=== PATIENT | female | born 1975 | race African-American/Black ===

== ENCOUNTER 2017-06-26 15:13 | Emergency (ER) | payer OTHER ==
[2017-06-26 15:26] VITALS: TEMP 98.2; BMI 39.0
--- NOTE | 2017-06-26 18:06 | PDOC ---
History of Present Illness - General Chief Complaint: Chest Pain Stated Complaint: CHEST PAIN Time Seen by Provider: 06/26/17 18:06 - History of Present Illness Initial Comments: 06/26/17 18:24 Ms. Gaming is a 41 yo female w/ pmh of HIV (last CD4 reported over 1k and viral load undetectable approximately 2 months ago) and anemia who presents for evaluation of 1 week of midline chest pain. She reports the pain as 5/10 and says that it gets intermittently better or worse although she cannot relate it to anything. She further reports a sensation of food sticking in her chest although she reports that this pain is different. The patient denies shortness of breath, headache and dizziness. Denies fever, chills, nausea, vomit, diarrhea and constipation. Denies dysuria, frequency, urgency and hematuria. Allergies: Zidovudine Past History - Past Medical History Allergies/Adverse Reactions: Allergies Allergy/AdvReac Type Severity Reaction Status Date / Time zidovudine AdvReac Severe anemia Verified 06/26/17 15:21 Home Medications: Ambulatory Orders Valacyclovir HCl [Valtrex -] 500 mg PO BID #10 tablet 01/06/16 Clotrimazole [Clotrimazole AF] 1 applic TP BID #15 cream..g. 08/24/16 [place]-3 Fatty Acids [[place]-3] 1,000 mg PO BID #60 capsule 09/13/16 Terbinafine HCl [Lamisil At] 1 applic TP BID #30 cream..g. 11/14/16 Cetirizine HCl [Zyrtec -] 10 mg PO DAILY PRN #30 tablet 04/10/17 Carboxymethylcellulose Sodium [Thera Tears] 1 - 2 drop OU PRN #15 ml 04/18/17 Atorvastatin Calcium [Lipitor] 10 mg PO HS #30 tablet 05/31/17 Sertraline HCl [Zoloft -] 100 mg PO DAILY 30 Days #30 tablet 06/05/17 Zolpidem Tartrate [Ambien] 5 mg PO HS #30 tablet MDD 1 06/05/17 Cholecalciferol (Vitamin D3) [Vitamin D3 -] 1,000 unit PO DAILY #30 tab Darunavir/Cobicistat [Prezcobix 800 mg-150 mg Tablet] 1 each PO DAILY #30 tablet 06/13/17 Dolutegravir Sodium [Tivicay] 50 mg PO DAILY #30 tablet 06/13/17 Emtricitabine/Tenofov Alafenam [Descovy 200-25 mg Tablet] 1 each PO DAILY #30 tablet 06/13/17 Multivitamin,Ther and Minerals [Vitamin and Minerals] 1 each PO DAILY #30 tablet 06/13/17 Triamcinolone 0.1% Cream [Aristocort 0.1% Cream -] 1 applic TP BID #15 g Docusate Sodium [Colace -] 100 mg PO TID PRN #90 capsule 06/26/17 Omeprazole 20 mg PO DAILY #14 tablet. 06/26/17 Anemia: No Asthma: No Cancer: No Cardiac Disorders: No CVA: No COPD: No CHF: No Dementia: No Diabetes: No GI Disorders: No Disorders: No HTN: No Hypercholesterolemia: Yes Liver Disease: No Seizures: No Thyroid Disease: No - Suicide/Smoking/Psychosocial Hx Smoking History: Never smoked Have you smoked in the past 12 months: No Cigars Per Day: 0 Hx Alcohol Use: Yes (occasional 1 drink) Drug/Substance Use Hx: No Substance Use Type: None Hx Substance Use Treatment: No Review of Systems - Review of Systems Comments:: 06/26/17 18:29 GENERAL/CONSTITUTIONAL: No fever or chills. No weakness. HEAD, EYES, EARS, NOSE AND THROAT: No change in vision. No ear pain or discharge. No sore throat. CARDIOVASCULAR: +Chest pain as described. No shortness of breath RESPIRATORY: No cough, wheezing, or hemoptysis. GASTROINTESTINAL: No nausea, vomiting, diarrhea or constipation. GENITOURINARY: No dysuria, frequency, or change in urination. MUSCULOSKELETAL: No joint or muscle swelling or pain. No neck or back pain. SKIN: No rash NEUROLOGIC: No headache, vertigo, loss of consciousness, or change in strength/ sensation. ENDOCRINE: No increased thirst. No abnormal weight change HEMATOLOGIC/LYMPHATIC: No anemia, easy bleeding, or history of blood clots. ALLERGIC/IMMUNOLOGIC: No hives or skin allergy. *Physical Exam - Vital Signs Last Vital Signs Temp Pulse Resp BP Pulse Ox 98.2 F 73 78 H 141/81 100 06/26/17 15:22 06/26/17 15:22 06/26/17 15:22 06/26/17 15:22 06/26/17 15:22 - Physical Exam Comments: 06/26/17 18:29 GENERAL: Awake, alert, and fully oriented, in no acute distress HEAD: No signs of trauma, normocephalic, atraumatic EYES: PERRLA, EOMI, sclera anicteric, conjunctiva clear ENT: Auricles normal inspection, hearing grossly normal, nares patent, oropharynx clear without exudates. Moist mucosa NECK: Normal ROM, supple, no lymphadenopathy, JVD, or masses LUNGS: +Reproducible chest pain with sternal palpation. No distress, speaks full sentences, clear to auscultation bilaterally HEART: Regular rate and rhythm, normal S1 and S2, no murmurs, rubs or gallops, peripheral pulses normal and equal bilaterally. ABDOMEN: Soft, nontender, normoactive bowel sounds. No guarding, no rebound. No masses EXTREMITIES: Normal inspection, Normal range of motion, no edema. No clubbing or cyanosis. NEUROLOGICAL: Cranial nerves II through XII grossly intact. Normal speech, normal gait, no focal sensorimotor deficits SKIN: Warm, Dry, normal turgor, no rashes or lesions noted. ED Treatment Course - LABORATORY CBC & Chemistry Diagram: 06/26/17 18:33 06/26/17 18:33 Medical Decision Making - Medical Decision Making 06/26/17 18:41 Ms. Gaming is a 41 yo female w/ pmh as described who presents for evaluation of midline chest pain as described. Chest pain workup started with evaluation for cardiac labs, EKG, CXR, and GERD treatment. 06/26/17 18:51 Patient signed out to Dr. Tamayo for further evaluation. *DC/Admit/Observation/Transfer Diagnosis at time of Disposition: Atypical chest pain - Discharge Dispostion Disposition: HOME Condition at time of disposition: Good - Prescriptions Prescriptions: Omeprazole 20 mg PO DAILY #14 tablet. - Referrals Referrals: [facility] [place] [facility] at [place] [Provider Group] - Patient Instructions Printed Discharge Instructions: DI for Atypical Chest Pain Additional Instructions: Please return if you have any new, worsening or concerning symptoms. Please follow up with your primary care physician this week. If you do not have one, a number for one has been provided for you. - Post Discharge Activity
[2017-06-26] MEDS ORDERED: FAMOTIDINE IV 20 MG/12 ML VIAL IVPB ONE (18:40)
[2017-06-26] MEDS ORDERED: SODIUM CHLORIDE 1,000 ML IV STA (18:40)
[2017-06-26] MEDS ORDERED: FAMOTIDINE 20 MG/50 ML IVPB 20 MG/50 ML MG IVPB ONE (18:59)
--- NOTE | 2017-06-26 19:41 | PDOC ---
Attending Attestation - Resident Resident Name: Justin Decker - ED Attending Attestation I have performed the following: I have examined & evaluated the patient, The case was reviewed & discussed with the resident, I agree w/resident's findings & plan, Exceptions are as noted - HPI HPI: 06/26/17 21:33 CP described as burning. - Physicial Exam PE: 06/26/17 21:32 *Physical Exam General Appearance: Yes: Appropriately Dressed. No: Apparent Distress, Intoxicated HEENT: positive: EOMI, AILYN, Normal ENT Inspection, Normal Voice, TMs Normal, Pharynx Normal. negative: Pale Conjunctivae, Photophobia, Scleral Icterus (R), Scleral Icterus (L) Neck: positive: Trachea midline, Normal Thyroid, Supple. negative: Tender, Rigid, Carotid bruit, Stridor, Lymphadenopathy (R), Lymphadenopathy (L), Thyromegaly Respiratory/Chest: positive: Lungs Clear, Normal Breath Sounds. negative: Chest Tender, Respiratory Distress, Accessory Muscle Use, Labored Respiration, RES, Crackles, Rales, Rhonchi, Stridor, Wheezing, Dullness Cardiovascular: positive: Regular Rhythm, Regular Rate, S1, S2. negative: Edema , JVD, Murmur, Bradycardia, Tachycardia Vascular Pulses: Dorsalis-Pedis (R): 2+, Doralis-Pedis (L): 2+ Gastrointestinal/Abdominal: positive: Normal Bowel Sounds, Flat, Soft. negative : Tender, Organomegaly, Pulsatile Mass, Increased Bowel Sounds, Decreased BS, Distended, Guarding, Rebound, Hernia, Hepatomegaly, Spleenomegaly Lymphatic: negative: Adenopathy, Tenderness Musculoskeletal: positive: Normal Inspection. negative: CVA Tenderness, Decreased Range of Motion Extremity: positive: Normal Capillary Refill, Normal Inspection, Normal Range of Motion, Pelvis Stable. negative: Tender, Pedal Edema, Swelling, Erythema Integumentary: positive: Normal Color, Dry, Warm. negative: Cyanotic, Erythema , Jaundice, Rash Neurologic: positive: fundraising sale representative II-XII NML intact, Fully Oriented, Alert, Normal Mood/ Affect, Motor Strength 5/5. negative: EOM Palsy, Facial Droop, Sensory Deficit - Medical Decision Making 06/26/17 21:33 Pt treated and released
--- NOTE | 2017-06-26 19:45 | PDOC ---
*Physical Exam - Vital Signs Last Vital Signs Temp Pulse Resp BP Pulse Ox 98.2 F 73 78 H 141/81 100 06/26/17 15:22 06/26/17 15:22 06/26/17 15:22 06/26/17 15:22 06/26/17 15:22 - Physical Exam Comments: 06/26/17 20:58 GENERAL: Awake, alert, and fully oriented, in no acute distress, standing up HEAD: No signs of trauma, normocephalic, atraumatic EYES: PERRLA, EOMI, sclera anicteric, conjunctiva clear ENT: Auricles normal inspection, hearing grossly normal, nares patent, oropharynx clear without exudates. Moist mucosa LUNGS: No distress, speaks full sentences, clear to auscultation bilaterally HEART: Regular rate and rhythm, normal S1 and S2, no murmurs, rubs or gallops, peripheral pulses normal and equal bilaterally. EXTREMITIES: Normal inspection, Normal range of motion, no edema. No clubbing or cyanosis. NEUROLOGICAL: Cranial nerves II through XII grossly intact. Normal speech, normal gait, no focal sensorimotor deficits SKIN: Warm, Dry, normal turgor, no rashes or lesions noted. Heart Score/ECG Review - History History: Slightly suspicious - Electrocardiogram EKG: Normal - Age Age: </= 45 - Risk Factors Based on the list above the patient has:: No risk factors known - Troponin Troponin: </= normal limit - Score Heart Score - Total: 0 ED Treatment Course - LABORATORY CBC & Chemistry Diagram: 06/26/17 18:33 06/26/17 18:33 - Medications Given in the ED: ED Medications Discontinued Medications Generic Name Dose Route Start Last Admin Trade Name Freq PRN Reason Stop Dose Admin Famotidine 20 mg in 12 mls @ 144 mls/hr 06/26/17 18:40 06/26/17 19:31 Pepcid 20 Mg/12 Ml Push IVPB 06/26/17 18:44 144 mls/hr ONCE ONE Administration Sodium Chloride 1,000 mls @ 1,000 mls/hr 06/26/17 18:40 06/26/17 19:30 Normal Saline - IV 06/26/17 19:39 1,000 mls/hr ASDIR STA Administration Medical Decision Making - Medical Decision Making 06/26/17 21:[address] Decker. Patient is 41F with history of HIV (last CD4 reported over 1k and viral load undetectable approximately 2 months ago) and anemia here today complaining of chest pain. Story atypical, likely GERD. Patient reports that pain has improved with pepcid. Labs reviewed, trop undetectable, otherwise unremarkable. EKG shows normal sinus rhythm with normal rate of [address] elevations/ depressions. Normal QRS/KS/QTc intervals. No significant t wave abnormalities. CXR pending. 06/26/17 21:28 CXR shows no acute cardiopulmonary process. Will discharge with return precautions and primary care follow up. *DC/Admit/Observation/Transfer Diagnosis at time of Disposition: Atypical chest pain - Discharge Dispostion Disposition: HOME Condition at time of disposition: Good - Referrals Referrals: [facility] [place] [facility] at [place] [Provider Group] - Patient Instructions Printed Discharge Instructions: DI for Atypical Chest Pain Additional Instructions: Please return if you have any new, worsening or concerning symptoms. Please follow up with your primary care physician this week. If you do not have one, a number for one has been provided for you. - Post Discharge Activity
[2017-06-26 19:47] LABS: BASO % 0.6 % (0-2.0); EOS % 0.5 % (0-4.5); HEMATOCRIT 40.8 % (32.4-45.2); LYMPH % 25.8 % (8-40); MCH 32.8 pg (25.7-33.7); MCHC 34.2 g/dl (32.0-36.0); MEAN CELL VOLUME 95.9 fl (80-96); MEAN PLT VOLUME 8.5 fl (7.5-11.1); NEUT % 64.1 % (42.8-82.8); PLATELET COUNT 220 K/MM3 (134-434); RBC 4.25 M/mm3 (3.60-5.2); RDW 15.5 % (11.6-15.6); WHITE BLOOD COUNT 8.2 K/mm3 (4.0-10.0)
[2017-06-26 20:02] LABS: ALBUMIN 3.2 g/dl (3.4-5.0); ANION GAP 5 (8-16); BLOOD UREA NITROGEN 11 mg/dL (7-18); CALCIUM 8.6 mg/dL (8.5-10.1); CHLORIDE 103 mmol/L (98-107); CO2 31 mmol/L (21-32); GLUCOSE,RANDOM 82 mg/dL (74-106); POTASSIUM 3.8 mmol/L (3.5-5.1); SODIUM 139 mmol/L (136-145)
[2017-06-26 20:08] LABS: ALK PHOS 60 U/L (45-117); BILIRUBIN,TOTAL 0.5 mg/dL (0.2-1.0); CREATININE 1.1 mg/dL (0.55-1.02); SGOT/AST 21 U/L (15-37); SGPT/ALT 24 U/L (12-78); TOT PROT 7.6 g/dl (6.4-8.2)
[2017-06-26 21:18] VITALS: BP 138/78; PULSE 78
== END 2017-06-26 21:59 | disposition home or self-care (01) ==
LOC: JER 15:13
PROC: 3E033GC Introduction of Other Therapeutic Substance into Peripheral Vein, Percutaneous Approach (ICD-10-PCS; principal; 2017-06-26)
DX: K21.9 Gastro-esophageal reflux disease without esophagitis (principal); R07.89 Other chest pain; D64.9 Anemia, unspecified; E78.00 Pure hypercholesterolemia, unspecified; Z21 Asymptomatic human immunodeficiency virus [HIV] infection status
CPT/HCPCS: 36415; 71046-TC-FY; 80053; 82550; 84484; 85025; 87086; 99282-25; J7030

== ENCOUNTER → 2023-01-16 | Day surgery (SDC) | payer OTHER | END | disposition home or self-care (01) | LOC: FMAMMOTONE 09:35 | PROVIDERS: ATTEND Surgery | PROC: 0HBT3ZX Excision of Right Breast, Percutaneous Approach, Diagnostic (ICD-10-PCS; principal; 2023-01-16) | DX: R92.8 Other abnormal and inconclusive findings on diagnostic imaging of breast (principal) | CPT/HCPCS: 19081; 76098-TC-FY; 88305-TC ==

== ENCOUNTER 2023-03-05 04:31 | Day surgery (SDC) | payer OTHER ==
[2023-02-14 15:19] VITALS: BMI 40.3
[2023-03-05 11:17] VITALS: RESP 18
[2023-03-05] MEDS ORDERED: oxyCODONE HCL 5 MG TABLET PO PRN (13:42)
[2023-03-05] MEDS ORDERED: LACTATED RINGERS SOLUTION 1,000 ML IV SCH (13:45)
[2023-03-05] MEDS ORDERED: MIDAZOLAM HCL 2 MG/2 ML SINGLE DOSE VIAL ONE (14:08)
[2023-03-05] MEDS ORDERED: ceFAZolin SODIUM 1 GM VIAL IVPB ONE (14:18)
[2023-03-05] MEDS ORDERED: LIDOCAINE HCL 1%, 10 MG/ML (50 mL VIAL) INF ONE ×3 (14:18→14:24)
[2023-03-05] MEDS ORDERED: ONDANSETRON 4 MG/2 ML VIAL ONE (14:19)
[2023-03-05] MEDS ORDERED: LIDOCAINE HCL/PF 2% SDV 5ML VIAL ONE (14:19)
[2023-03-05] MEDS ORDERED: DEXAMETHASONE SOD PHOSPHATE 4 MG/1 ML VIAL ONE (14:19)
[2023-03-05] MEDS ORDERED: SODIUM CHLORIDE 0.9% P/F 10 ML VIAL IJ ONE (14:19)
[2023-03-05] MEDS ORDERED: ceFAZolin SODIUM 1 GM VIAL ONE (14:19)
[2023-03-05] MEDS ORDERED: HYDROmorphone HCl 2 MG/ML VIAL ONE (14:20)
[2023-03-05] MEDS ORDERED: ACETAMINOPHEN INJECTION 100 ML IVPB ONE (14:21)
[2023-03-05 16:26] VITALS: TEMP 97.1
[2023-03-05 17:26] VITALS: BP 103/67; PULSE 72
== END 2023-03-05 17:30 | disposition home or self-care (01) ==
LOC: JASU-SURG 04:31
PROVIDERS: ATTEND Surgery
PROC: 0HBT0ZZ Excision of Right Breast, Open Approach (ICD-10-PCS; principal; 2023-03-05 13:30)
DX: N60.91 Unspecified benign mammary dysplasia of right breast (principal)
CPT/HCPCS: 19281; 76098-TC-FY; 81025; 94760

== ENCOUNTER 2023-03-07 11:27 | Emergency (ER) | payer OTHER ==
[2023-03-07 11:50] VITALS: BP 124/61; PULSE 89; RESP 18; TEMP 98; BMI 41.9
[2023-03-07] MEDS ORDERED: KETOROLAC TROMETHAMINE 30 MG/1 ML VIAL IM ONE (12:46)
[2023-03-07] MEDS ORDERED: LIDOCAINE 4% PATCH TP ONE ×2 (12:47→12:50)
[2023-03-07] MEDS ORDERED: KETOROLAC TROMETHAMINE 30 MG/1 ML VIAL ONE (12:50)
== END 2023-03-07 13:41 | disposition home or self-care (01) ==
LOC: JER 11:27
PROC: 3E0233Z Introduction of Anti-inflammatory into Muscle, Percutaneous Approach (ICD-10-PCS; principal; 2023-03-07)
DX: M54.50 Low back pain, unspecified (principal); V43.53XA Car driver injured in collision with pick-up truck in traffic accident, initial encounter; Y92.410 Unspecified street and highway as the place of occurrence of the external cause
CPT/HCPCS: 72100-TC-FY; 93005; 93010; 99284-25